=== PATIENT | male | born 1955 | race Caucasian/White ===

== ENCOUNTER 2018-06-26 13:27 | Emergency (ER) | payer SELFPAY ==
[~2018-06-26] VITALS: Ht 177.8 cm; Wt 83.8 kg
[2018-06-26 14:12] VITALS: Ht 177.8 cm; Wt 83.8 kg
[2018-06-26] MEDS ORDERED: PRED20TA PO (16:02)
[2018-06-26] MEDS ORDERED: SULF1TAB31 PO (16:02)
[2018-06-26] MEDS ORDERED: CEPH-443 PO (16:02)
--- NOTE | 2018-06-26 16:25 | ERD ---
ER Documentation Chief Complaint Chief Complaint RASH WITH INFECTION; SEVERAL WEEKS AGO DX WITH SCABIES, RX NOT WORKING HPI Patient is a 62-year-old male with no medical problems who presents with a rash. The patient was told that he had scabies and bedbugs a few weeks ago and tried permethrin but did not get better. The other people in his family had similar rash and took permethrin and did get better. He said that it is itchy with pustules on a few portions of his body. The most notable is the left ankle and top of the buttock. ROS All systems reviewed and are negative except as per history of present illness. Medications Home Meds Active Scripts Diphenhydramine Hcl* (Benadryl*) 50 Mg Cap, 50 MG PO Q6H PRN for ITCHING/RASH, #10 CAP Prov:GEO FU MD 06/26/18 Prednisone* (Prednisone*) 20 Mg Tab, 60 MG PO DAILY for 5 Days, TAB Prov:GEO FU MD 06/26/18 Cephalexin* (Keflex*) 500 Mg Capsule, 500 MG PO QID for 7 Days, CAP Prov:GEO FU MD 06/26/18 Sulfamethoxazole/Trimethoprim* (Bactrim Ds* Tablet) 1 Each Tablet, 1 TAB PO BID, #14 TAB Prov:GEO FU MD 06/26/18 PMhx/Soc Medical and Surgical Hx: pt denies Medical Hx, pt denies Surgical Hx Hx Alcohol Use: No Hx Substance Use: No Hx Tobacco Use: No Smoking Status: Never smoker FmHx Family History: No diabetes Physical Exam Vitals Vital Signs Date Temp Pulse Resp B/P (MAP) Pulse Ox O2 O2 Flow FiO2 Time Delivery Rate 06/26/18 99.9 88 18 179/81 97 14:12 (113) Physical Exam Const: No acute distress Head: Atraumatic Eyes: Normal Conjunctiva ENT: Normal External Ears, Nose and Mouth. Neck: Full range of motion. No meningismus. Resp: Clear to auscultation bilaterally Cardio: Regular rate and rhythm, no murmurs Abd: Soft, non tender, non distended. Normal bowel sounds Skin: Pustular-like rash to the left ankle and above the buttock with surrounding erythema Back: No midline or flank tenderness Ext: No cyanosis, or edema Neur: Awake and alert Psych: Normal Mood and Affect Procedures/MDM Smoking Cessation Therapy: Pt. was lectured for greater than 3 minutes on the health risks of continued smoking and the benefits of cessation. Patient is a 62-year-old male who presents with what appears to be infected pustule. The patient will be given a prescription for Keflex and Bactrim as well as prednisone and Benadryl for symptom medic relief of itchiness. This may have started as bedbugs but now has become superinfected. The patient will need to follow-up with the local clinics as he does not currently have a primary doctor in this area. He can return for any worsening symptoms. There is no fever and I doubt sepsis. Departure Diagnosis: Primary Impression: Cellulitis Site of cellulitis: unspecified site Qualified Codes: L03.90 - Cellulitis, unspecified Additional Impression: Rash Condition: Fair Patient Instructions: Self-Care for Skin Rashes Referrals: [facility] YOU HAVE RECEIVED A MEDICAL SCREENING EXAM AND THE RESULTS INDICATE THAT YOU DO NOT HAVE A CONDITION THAT REQUIRES URGENT TREATMENT IN THE EMERGENCY DEPARTMENT. FURTHER EVALUATION AND TREATMENT OF YOUR CONDITION CAN WAIT UNTIL YOU ARE SEEN IN YOUR DOCTORS OFFICE WITHIN THE NEXT 1-2 DAYS. IT IS YOUR RESPONSIBILITY TO MAKE AN APPOINTMENT FOR FOLOW-UP CARE. IF YOU HAVE A PRIMARY DOCTOR --you should call your primary doctor and schedule an appointment IF YOU DO NOT HAVE A PRIMARY DOCTOR YOU CAN CALL OUR PHYSICIAN REFERRAL HOTLINE AT IF YOU CAN NOT AFFORD TO SEE A PHYSICIAN YOU CAN CHOSE FROM THE FOLLOWING [facility] [address] [facility]. [facility] [address] [facility] [facility] [address] [facility] [facility] [address] [facility]. [facility] [place] [place] [address] [facility]. [facility]. [address] Additional Instructions: Call your primary care doctor TOMORROW for an appointment during the next 1-2 days.See the doctor sooner or return here if your condition worsens before your appointment time. GEO FU MD Jun 26, 2018 16:25
[2018-06-26] MEDS ORDERED: BEN50 PO (16:27)
[2018-06-26 16:32] VITALS: BP 155/89; PULSE 76; RESP 19
== END 2018-06-26 16:33 | disposition home or self-care (01) ==
LOC: FTE 13:27
DX: L03.90 Cellulitis, unspecified (principal)
CPT/HCPCS: 99283

== ENCOUNTER 2018-10-05 14:27 | Emergency (ER) | payer SELFPAY ==
[~2018-10-05] VITALS: Ht 177.8 cm; Wt 81.6 kg
[~2018-10-05 14:27] MED LIST: BEN50 PO; CEPH-443 PO; PRED20TA PO; SULF1TAB31 PO
[2018-10-05 14:30] VITALS: BP 183/59; PULSE 67; RESP 16; Ht 177.8 cm; Wt 81.6 kg
[2018-10-05] MEDS ORDERED: PRED20TA PO (15:14)
[2018-10-05] MEDS ORDERED: DOXY100T20 PO (15:14)
[2018-10-05] MEDS ORDERED: HC30CR25 TOP (15:14)
--- NOTE | 2018-10-05 15:20 | ERD ---
ER Documentation Chief Complaint Chief Complaint pt reports multiple areas of skin "cellulitis" after running out of meds HPI 62-year-old male presents with recurrent skin lesions over the last week. He was treated approximate 3 months ago for cellulitis with Bactrim and Keflex as well as prednisone. He states that it improved significantly although he did not take complete course of antibiotics. He states that he may have been reinfected after working on his car and staying in a dirty motel. There is no history of fevers, vomiting, shortness of breath. He has itchy skin lesions on the trunk and back and extremities. ROS All systems reviewed and are negative except as per history of present illness. Medications Home Meds Active Scripts Hydrocortisone* Topical (Hydrocortisone* Topical) 2.5%-28.3 Gm Cream..g., 1 APPLIC TOP BID for 10 Days, #1 TUB Prov:NURIA JACOBO MD 10/05/18 Prednisone* (Prednisone*) 20 Mg Tab, 40 MG PO DAILY for 4 Days, TAB Prov:NURIA JACOBO MD 10/05/18 Doxycycline Hyclate* (Doxycycline Hyclate*) 100 Mg Tablet.dr, 100 MG PO BID for 10 Days, TAB Prov:NURIA JACOBO MD 10/05/18 Diphenhydramine Hcl* (Benadryl*) 50 Mg Cap, 50 MG PO Q6H PRN for ITCHING/RASH, #10 CAP Prov:GEO FU MD 06/26/18 Prednisone* (Prednisone*) 20 Mg Tab, 60 MG PO DAILY for 5 Days, TAB Prov:GEO FU MD 06/26/18 Cephalexin* (Keflex*) 500 Mg Capsule, 500 MG PO QID for 7 Days, CAP Prov:GEO FU MD 06/26/18 Sulfamethoxazole/Trimethoprim* (Bactrim Ds* Tablet) 1 Each Tablet, 1 TAB PO BID, #14 TAB Prov:GEO FU MD 06/26/18 Allergies Allergies: Coded Allergies: No Known Allergy (Unverified , 10/05/18) PMhx/Soc Hx Alcohol Use: No Hx Substance Use: No Hx Tobacco Use: No Smoking Status: Never smoker FmHx Family History: No diabetes, No coronary disease, No other Physical Exam Vitals Vital Signs Date Temp Pulse Resp B/P (MAP) Pulse Ox O2 O2 Flow FiO2 Time Delivery Rate 10/05/18 98.5 67 16 183/59 98 14:30 (100) Physical Exam Const: No acute distress Head: Atraumatic Eyes: Normal Conjunctiva ENT: Normal External Ears, Nose and Mouth. Neck: Full range of motion. No meningismus. Resp: Clear to auscultation bilaterally Cardio: Regular rate and rhythm, no murmurs Abd: Soft, non tender, non distended. Normal bowel sounds Skin: No petechiae or rashes. Scattered excoriated maculopapular rash on the trunk and extremities. Areas of redness. No lesions in the webspaces. No induration, streaking, fluctuance, active discharge. Back: No midline or flank tenderness Ext: No cyanosis, or edema Neur: Awake and alert Psych: Normal Mood and Affect Procedures/MDM Patient presents with nonspecific skin lesions, possibly folliculitis or unspecified dermatitis. Doubt scabies with no signs of significant cellulitis, sepsis, purpura or life-threatening rashes. Will treat empirically for folliculitis nonspecific dermatitis with doxycycline, hydrocortisone, short course of prednisone, primary care follow-up and return precautions. The patient was stable with no new complaints during the ER course. Clinically, there is no current evidence to suggest meningitis, sepsis, acute abdomen, pneumonia, stroke, acute coronary syndrome, pulmonary embolism, aortic dissection or any other emergent condition appearing to require further evaluation or hospitalization. Patient counseled regarding my diagnostic impression and care plan. Prior to discharge all questions answered. Pt agrees with treatment plan and understands strict return precautions. Pt is instructed to follow up with primary care provider within 24-48 hours. Precautionary instructions provided including instructions to return to the ER if not improving or for any worsening or changing symptoms or concerns. Disclaimer: Inadvertent spelling and grammatical errors are likely due to EHR/dictation software use and do not reflect on the overall quality of patient care. Also, please note that the electronic time recorded on this note does not necessarily reflect the actual time of the patient encounter. Departure Diagnosis: Primary Impression: Folliculitis Additional Impression: Rash Condition: Stable Patient Instructions: Folliculitis Additional Instructions: Recheck for worsening redness, fevers, new worsening symptoms. Recommend cleaning all household surfaces-door handles, sinks, etc. NURIA JACOBO MD Oct 05, 2018 15:19
== END 2018-10-05 16:11 | disposition home or self-care (01) ==
LOC: FTE 14:27
DX: L73.9 Follicular disorder, unspecified (principal)
CPT/HCPCS: 99283